=== PATIENT | female | born 1975 | race Caucasian/White ===

== ENCOUNTER 2017-10-10 12:22 | Emergency (ER) | payer MEDICAID ==
[2017-10-10 13:17] VITALS: BP 157/104; PULSE 88; RESP 18; TEMP 98.4; O2SAT 99; BMI 27.4
[2017-10-10 13:52] LABS: SQUAMOUS EPITHIAL 1 /hpf (0-5); URINE AMORPHOUS SEDIMENT OCC /ul (<OCC); URINE BILIRUBIN NEGATIVE (NEGATIVE); URINE BLOOD NEGATIVE (NEGATIVE); URINE CLARITY Hazy (Clear); URINE COLOR Yellow (YELLOW); URINE GLUCOSE (UA) NORMAL (Normal); URINE LEUKOCYTE ESTERASE NEG Leu/uL (Negative); URINE PROTEIN NEGATIVE (NEGATIVE); URINE UROBILINOGEN NORMAL mg/dL (0.2-1.0)
--- NOTE | 2017-10-10 14:07 | CT ---
PROCEDURE: CT HEAD WITHOUT CONTRAST. HISTORY: dizziness COMPARISON: None available. TECHNIQUE: Axial computed tomography images were obtained through the head/brain without intravenous contrast. Radiation dose: Total exam DLP = 847.26 mGy-cm. This CT exam was performed using one or more of the following dose reduction techniques: Automated exposure control, adjustment of the mA and/or kV according to patient size, and/or use of iterative reconstruction technique. FINDINGS: HEMORRHAGE: No intracranial hemorrhage. BRAIN: No mass effect or edema. No atrophy or chronic microvascular ischemic changes. VENTRICLES: Unremarkable. No hydrocephalus. CALVARIUM: Unremarkable. PARANASAL SINUSES: Unremarkable as visualized. No significant inflammatory changes. MASTOID AIR CELLS: Unremarkable as visualized. No inflammatory changes. OTHER FINDINGS: None. IMPRESSION: No acute intracranial abnormalities. No significant findings to account for the clinical presentation.
--- NOTE | 2017-10-10 14:57 | C.PDOC ---
History Of Present Illness 42 y/o female presents to the ED complaining of a bitemporal headache with gradual onset for the past 5 days. Patient has not seen her doctor yet. (+) photophobia. Denies any nausea, vomiting, injury, or trauma. Pt reports taking Tylenol with intermittent relief. No thunder clap association. Patient states this is not the worst headache of her life. Time Seen by Provider: 10/10/17 12:45 Chief Complaint (Nursing): Headache History Per: Patient History/Exam Limitations: no limitations Onset/Duration Of Symptoms: Days (x5) Current Symptoms Are (Timing): Still Present Associated Symptoms: Photophobia Past Medical History Reviewed: Historical Data, Nursing Documentation, Vital Signs Vital Signs: Last Vital Signs Temp 98.4 F 10/10/17 12:32 Pulse 88 10/10/17 12:32 Resp 18 10/10/17 12:32 BP 157/104 H 10/10/17 12:32 Pulse Ox 99 10/10/17 15:17 - Medical History PMH: HTN Other Surgeries: Thyroid tumor removal Family History: States: Unknown Family Hx - Social History Hx Alcohol Use: No Hx Substance Use: No - Immunization History Hx Tetanus Toxoid Vaccination: No Hx Influenza Vaccination: Yes Hx Pneumococcal Vaccination: No Review Of Systems Except As Marked, All Systems Reviewed And Found Negative. Neurological: Positive for: Headache Physical Exam - Physical Exam Appears: Non-toxic, No Acute Distress Skin: Normal Color, Warm, Dry Head: Atraumatic, Normacephalic Eye(s): bilateral: Normal Inspection, PERRL, EOMI, Other (fundoscopic exam is normal) Ear(s): Bilateral: Normal Nose: Normal Oral Mucosa: Moist Neck: Normal ROM, No Midline Cervical Tenderness, Supple, No Other (meningeal signs) Chest: Symmetrical Cardiovascular: Rhythm Regular, No Murmur Respiratory: Normal Breath Sounds, No Accessory Muscle Use Neurological/Psych: Oriented x3, Normal Speech, Normal Cranial Nerves, Normal Motor, Normal Sensation, No Other (focal deficits) ED Course And Treatment - Laboratory Results Lab Interpretation: Normal (UA unremarkable) Urine POC: Negative O2 Sat by Pulse Oximetry: 99 (RA) Pulse Ox Interpretation: Normal - CT Scan/US CT Head Other Rad Studies (CT/US): Read By Radiologist, Radiology Report Reviewed CT/US Interpretation: FINDINGS: HEMORRHAGE: No intracranial hemorrhage. BRAIN : No mass effect or edema. No atrophy or chronic microvascular ischemic changes. VENTRICLES: Unremarkable. No hydrocephalus. CALVARIUM: Unremarkable. PARANASAL SINUSES: Unremarkable as visualized. No significant inflammatory changes. MASTOID AIR CELLS: Unremarkable as visualized. No inflammatory changes. OTHER FINDINGS: None. IMPRESSION: No acute intracranial abnormalities. No significant findings to account for the clinical presentation. Medical Decision Making Medical Decision Making: Impression: Headache Time: 13:05 Initial Plan: --CT Head --Tramadol 50 mg PO --Urine preg --Urinalysis --Reevaluation On reevaluation, patient reports improvement and resolution of headache. Will discharge home with naproxen for pain. Disposition Counseled Patient/Family Regarding: Studies Performed, Diagnosis, Need For Followup, Rx Given - Disposition Referrals: Olegario Duvall MD [Staff Provider] - Disposition: HOME/ ROUTINE Disposition Time: 14:40 Condition: IMPROVED Additional Instructions: follow up with your doctor or medical clinic in 2 days call to make an appointment take medications as prescribed return to ER if symptoms worsens or progress Prescriptions: Naproxen [Naprosyn] 500 mg PO BID PRN #16 tab PRN Reason: Pain, Moderate (4-7) Instructions: Sinus Headache (DC) Forms: [employer] (Portuguese) Print Language: FILIPINO - Clinical Impression Clinical Impression: Headache, Headache - Scribe Statement The provider has reviewed the documentation as recorded by the Karina Westfall Provider Attestation: All medical record entries made by the Jacintoibcelestino were at my direction and personally dictated by me. I have reviewed the chart and agree that the record accurately reflects my personal performance of the history, physical exam, medical decision making, and the department course for this patient. I have also personally directed, reviewed, and agree with the discharge instructions and disposition.
== END 2017-10-10 15:43 | disposition home or self-care (01) ==
LOC: C.ER 12:22
DX: R51 Headache (principal)

== ENCOUNTER 2018-10-29 08:47 | Outpatient (CLI) | payer MEDICAID | END 2018-10-29 08:48 | disposition home or self-care (01) | LOC: C.LAB 08:47 | DX: Z01.818 Encounter for other preprocedural examination (principal); M20.41 Other hammer toe(s) (acquired), right foot ==

== ENCOUNTER 2018-12-07 06:08 | Day surgery (SDC) | payer MEDICAID ==
[2018-11-29 12:33] VITALS: BMI 31.8
[2018-12-07 07:12] LABS: BASO % 0.5 % (0.0-2.0); EOS % 0.5 % (0.0-4.0); LYMPH # 2.3 K/uL (1.0-4.3); MEAN CELL VOLUME 75.7 fL (81.0-99.0); MEAN CORPUSCULAR HEMOGLOBIN 24.9 pg (27.0-31.0); MEAN CORPUSCULAR HGB CONC 32.9 g/dL (33.0-37.0); MEAN PLATELET VOLUME 10.2 fL (7.2-11.7); MONO # 0.6 K/uL (0.0-0.8); MONO % 8.1 % (0.0-10.0); NEUT # 3.9 K/uL (1.8-7.0); NEUT % 56.9 % (50.0-75.0); RBC 4.82 Mil/uL (3.80-5.20); RED CELL DISTRIBUTION WIDTH 16.2 % (11.5-14.5); WHITE BLOOD COUNT 6.9 K/uL (4.8-10.8)
[2018-12-07] MEDS ORDERED: Lidocaine Hydrochloride 10 ML INJ ONE (07:36)
[2018-12-07] MEDS ORDERED: Bupivacaine HCl 0.5% PF (10 ml) Inj ONE ×2 (07:36→08:03)
[2018-12-07] MEDS ORDERED: ceFAZolin 1 gm in NS 2 GM/200 ML BAG IVPB ONE (07:37)
[2018-12-07] MEDS ORDERED: Midazolam 2 MG/2 ML VIAL ONE (07:54)
[2018-12-07] MEDS ORDERED: Propofol 10 mg/ml Inj (20 ML) ONE ×2 (07:54→08:21)
[2018-12-07] MEDS ORDERED: Triamcinolone Acetonide 40 mg/mL Inj ONE (08:03)
[2018-12-07] MEDS ORDERED: Dexamethasone 4 mg/1 ml ONE (08:03)
[2018-12-07] MEDS ORDERED: Bacitracin Ointment 30 GM TUBE ONE (08:04)
--- NOTE | 2018-12-07 09:04 | PCM.SURG1 ---
Surgeon's Initial Post Op Note - Surgeon's Notes Surgeon: Dr. Fletcher Guardado DPM Regional Sales Representative: Dr. Shruthi Crews PGY2, Dr. Shalom Jones PGY2 Type of Anesthesia: IV Sedation, Local Anesthesia Administered By: Dr. Turner Pre-Operative Diagnosis: 1. Hammertoe right fourth digit. 2. Right foot fourth digit exostosis. 3. Hammertoe right fifth digit Operative Findings: See operative report. M- 3-0 vicryl, 4-0 prolene. I - Preop: 10 cc 1:1 1% lidocaine plain, 0.5% marcaine plain; Postop: 10 cc 0.5% marcaine plain, decadron, kenalog Post-Operative Diagnosis: Same Operation Performed: 1. Right foot fourth digit proximal phalanx arthroplasty. 2. Right foot fourth digit middle phalanx exostectomy. 3. Right foot fifth digit proximal phalanx arthroplasty Specimen/Specimens Removed: 1. Right foot fourth digit bone. 2. Right foot fifth digit bone Estimated Blood Loss: EBL {In ML}: 0 Blood Products Given: N/A Drains Used: No Drains Post-Op Condition: Good Date of Surgery/Procedure: 12/07/18 Time of Surgery/Procedure: 09:05
[2018-12-07] MEDS ORDERED: HYDROmorphone 0.5 mg/0.5 ml ISec IVP PRN (09:10)
[2018-12-07] MEDS ORDERED: Lactated Ringer's 1,000 ML IV SCH (09:15)
[2018-12-07] MEDS ORDERED: Oxycodone/Acetaminophen 5/325 mg Tab PO PRN (09:30)
[2018-12-07 09:38] VITALS: O2SAT 99
[2018-12-07 09:56] VITALS: RESP 14
--- NOTE | 2018-12-07 10:01 | PCM.OP ---
Operative Report - Operative Report Date of Surgery/Procedure: 12/07/18 Time of Surgery/Procedure: 07:45 Surgeon: Dr. Guardado Javascript Application Developer: Shruthi Crews PGY-2, Shalom Jones PGY-2 Anesthesia/Sedation: IV sedation with local - Dr. Johnny EASON Pre-Operative Diagnosis: 1) right foot 4th digit hammertoe 2) right foot 4th digit middle phalanx exostosis 3) right foot 5th digit hammertoe Post-Operative Diagnosis: same Indication for Surgery: The patient is a 43 year-old female with the above diagnoses. The patient has exhausted conservative treatment at this time and now requests surgical intervention. The patient signed the consent after careful explanation of risks, benefits, complications and alternatives for surgical procedure. No guarantees were given nor implied. NPO status was confirmed prior to taking the patient to the operating room. Operative Findings: The patient was brought to the operating room and placed on the operating room table in the supine position. A well-padded pneumatic ankle tourniquet was placed to the patient's right ankle in the supramalleolar position. After induction of IV sedation, the patient received a total of 10 mL of 1:1 mixture of 0.5% Marcaine plain and 1% Lidocaine plain in a local digital block fashion to the right foot 4th and 5th digits. Once local anesthesia was achieved, the right foot was then prepped and draped in usual sterile manner. An esmarch was utilized to exsanguinate the patient's right foot. The pneumatic ankle tourniquet was then inflated to 250 mm Hg and procedure began. Procedure/Operation Description: Procedure #1: Right foot 4th digit PIPJ arthroplasty Attention was directed to the dorsal aspect of the 4th digit of the right foot, where using a sterile 15 blade, an approximately 2 cm incision was made on the dorsal aspect of the proximal interphalangeal joint of the 4th digit in a linear longitudinal fashion. Sharp dissection was carried down through the deep tissues being careful to identify and retract all vital neurovascular structures. All bleeders were ligated and cauterized. At this time, a tra nsverse tenotomy and capsulotomy were performed to the proximal interphalangeal joint and the head of the proximal phalanx was then freed of its capsular and ligamentous attachments. Next utilizing the oscillating bone saw the head of the proximal phalanx was resected and passed from the operative site. Correction of the deformity was assessed at this time and noted to be excellent. Procedure #2: Right foot 4th digit middle phalanx exostectomy Attention was now directed to the distal aspect of the surgical incision. A sterile 15 blade was used to make a periosteal incision atop the middle phalanx of the 4th digit. Using blunt dissection and a freer elevator, the prominent exostosis at andre lateral aspect of the middle phalanx was exposed. Using a bone rasp, the exostosis was resected and passed from the operative field. The site was then flushed with copious amounts of sterile saline. The tendon and the subcutaneous tissues were reapproximated and coapted with 4-0 Vicryl and skin was reapproximated and coapted with 4-0 Nylon. Procedure #3: Right foot 5th digit PIPJ arthroplasty Next, an approximately 2 cm incision was made on the dorsal aspect of the proximal interphalangeal joint of the 5th digit in semi-elliptical fashion from distal medial to proximal lateral. Sharp dissection was carried down through the deep tissues being careful to identify and retract all vital neurovascular structures. All bleeders were ligated and cauterized. At this time a transverse tenotomy and capsulotomy were performed to the proximal interphalangeal joint and the head of the proximal phalanx was then freed of its capsular and ligamentous attachments. Next utilizing the oscillating bone saw the head of the proximal phalanx was resected and passed from the operative site. Correction of the deformity was assessed at this time and noted to be excellent. The site was then flushed with copious amounts of sterile saline. The tendon and the subcutaneous tissues were reapproximated and coapted with 4-0 Vicryl and skin was reapproximated and coapted with 4-0 Nylon. A postoperative injection of 10cc of 0.5% Marcaine plain, 1cc of Dexamethasone phosphate and 1cc of Kenalog was injected for analgesia and edema control. Postoperative bandages included bacitracin, Adaptic, 4x4 gauze, Wm and an TOBIN bandage. Estimated Blood Loss: 5mL Complications: None Specimen: right foot 4th digit proximal phalanx and middle phalanx bone, right foot 5th digit bone Discharge & Condition: The patient tolerated the anesthesia and procedure well and was escorted to the recovery room with vital signs stable and neurovascular status intact to the right foot. This patient will follow up with Dr. Guardado in his office within 1 week of surgery.
[2018-12-07 11:18] VITALS: BP 119/63; PULSE 64; TEMP 98.2
== END 2018-12-07 11:15 | disposition home or self-care (01) ==
LOC: C.SDS 06:08
PROVIDERS: ATTEND Podiatrist Foot & Ankle Surgery
DX: M20.41 Other hammer toe(s) (acquired), right foot (principal)
CPT/HCPCS: 28285; 28286; 36415; 85025; 88304; J0690; J1100; J2250; J2704; J3010; J3301